=== PATIENT | male | born 1985 | race African-American/Black ===

== ENCOUNTER 2024-04-29 01:55 | Emergency (ER) | payer OTHER ==
[~2024-04-29] VITALS: Ht 185.4 cm; Wt 79.4 kg
[2024-04-29] MEDS ORDERED: CLINDAMYCIN PHOSPHATE 150 MG/ML (600mg) IM STA (02:30)
[2024-04-29] MEDS ORDERED: TETANUS & DIPHTHERIA TOX,ADULT 0.5 ML VIAL IM STA (02:30)
[2024-04-29] MEDS ORDERED: CLINDAMYCIN PHOSPHATE 150 MG/ML (300mg) ONE (02:40)
[2024-04-29] MEDS ORDERED: TETANUS DIPHTHERIA TOX. ADSOR 5 ML VIAL IM ONE (02:40)
== END 2024-04-29 02:46 | disposition home or self-care (01) ==
LOC: ER 01:56
DX: S81.851A Open bite, right lower leg, initial encounter (principal); W54.0XXA Bitten by dog, initial encounter; Y93.89 Activity, other specified; Y92.89 Other specified places as the place of occurrence of the external cause; Y99.9 Unspecified external cause status